=== PATIENT | male | born 1975 | race Caucasian/White ===

== ENCOUNTER → 2017-04-02 | Outpatient (CLI) | payer OTHER ==
--- NOTE | ~2017-04-02 | MR154 ---
[facility] A Service of [facility] & [facility] RADIOLOGY TEXT RESULTS PATIENT: MARY GARCIA LOCATION: [facility] : 73 UNIT #: [id number] AGE: [address]: Alejandra Lucia MD SEX: M ORDER DR: [id number] [facility] [address] [place], [place] [address] [id number] O MR#: [id number] Acc #: [id number] NAME: MARY GARCIA : 1975 SEX: M STUDY DATE/TIME: 04/02/2017 17:18 UNIT: [facility] ROOM: STUDY DESCRIPTION: MR Pituitary Only WWo Cont Attending Physician: Alejandra Lucia M.D. Referring Physician: Alejandra Lucia M.D. Ordering Physician: Alejandra Lucia M.D. Primary Care Physician: Zohra Spaulding M.D. MRI CENTER REPORT This report is preliminary unless electronic signature is present. EXAM MRI of the brain pituitary with and without. INDICTIONS Pituitary tumor, low testosterone since September 2016 COMMENTS MRI of the sella performed prior to and following intravenous administration of 20 mL of MultiHance. There is a comparison study from 10/14/2016. There is again a tiny focus of nonenhancement or hypoenhancement at the posterior aspect of the gland superiorly to the right of midline about 2 mm dimension. It could be a tiny cyst or microadenoma. It is not appreciably changed. The infundibulum is deviated left side not appreciably changed. Mild heterogeneity of the gland adjacent to this is also noted not changed. There is no mass effect upon adjacent structures. There is no involvement of cavernous sinuses. There is no mass effect upon optic nerves tracts or chiasm. 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 Again there is what is probably a mucous retention cyst in the left lateral sphenoid sinus with proteinaceous material within it. It is mildly increased in signal intensity on T1-weighted imaging. This is also not changed.. IMPRESSION 1. Stable appearance of the sella. Again there is a small focus of hypo enhancement or nonenhancement posterior aspect of the sella to the right of midline relatively superiorly which could be a tiny cyst or microadenoma. It is not changed from previous study and there is some subtle adjacent heterogeneity without enhancement. There is no STS. [facility] A Service of [facility] RADIOLOGY TEXT RESULTS PATIENT: MARY GARCIA LOCATION: [facility] : 73 UNIT #: [id number] AGE: [address]: Alejandra Lucia MD SEX: M ORDER DR: mass effect upon adjacent structures. There is mild infundibular deviation again noted to the left side. 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 Continued follow up is recommended. Dictated by... Rebekah Babcock M.D. THIS IS AN ELECTRONICALLY VERIFIED REPORT Rebekah Babcock M.D. at 04/06/2017 4:23 PM BREA/calvin TD: 04/06/2017 14:27 JOB #: [id number] MRI CENTER REPORT Page 1 of 1 COPY
[2017-04-02 17:17] LABS: POC - CREATININE 1.22 mg/dL (0.64-1.27); POC - GFR >60.0 mL/min (>60)
== END | disposition home or self-care (01) ==
LOC: CMRI 16:38
PROVIDERS: Internal Medicine
DX: D49.7 Neoplasm of unspecified behavior of endocrine glands and other parts of nervous system (principal)
CPT/HCPCS: 70553; 82565; A9577